=== PATIENT | male | born 1955 | race Caucasian/White ===

== ENCOUNTER 2017-03-30 08:04 | Day surgery (SDC) | payer BC ==
[~2017-03-30] VITALS: Ht 177.8 cm; Wt 90.9 kg
[~2017-03-30 08:04] MED LIST: METO25TA91 PO; RIVA20TA PO
[2017-03-30] MEDS ORDERED: SODIUM CHLORIDE 0.9% 500 ML IV PRN (08:45)
[2017-03-30 08:52] VITALS: BP 118/79
[2017-03-30] MEDS ORDERED: PLEASE ENTER HEIGHT AND WEIGHT MC SCH (09:00)
[2017-03-30] MEDS ORDERED: DRON400T PO (09:23)
[2017-03-30] MEDS ORDERED: DILT240C PO (09:23)
[2017-03-30] MEDS ORDERED: APIX5TAB PO (09:23)
[2017-03-30] MEDS ORDERED: METO25TA91 PO (09:23)
[2017-03-30 10:02] LABS: BLOOD UREA NITROGEN 24 mg/dL (7-18)
[2017-03-30] MEDS ORDERED: PROPOFOL 10 MG/ML, 20ML ONE (10:20)
== END 2017-03-30 11:35 | disposition home or self-care (01) ==
LOC: CACL 08:04
PROVIDERS: ATTEND Internal Medicine Cardiovascular Disease
DX: I48.0 Paroxysmal atrial fibrillation (principal); I34.0 Nonrheumatic mitral (valve) insufficiency; I42.9 Cardiomyopathy, unspecified; E11.9 Type 2 diabetes mellitus without complications; G47.30 Sleep apnea, unspecified; Z79.01 Long term (current) use of anticoagulants; Z88.1 Allergy status to other antibiotic agents; Z88.0 Allergy status to penicillin; Z88.8 Allergy status to other drugs, medicaments and biological substances; E78.5 Hyperlipidemia, unspecified
CPT/HCPCS: 36415; 80048; 92960; 93005; J2704

== ENCOUNTER 2017-06-17 17:13 | Emergency (ER) | payer BC ==
[~2017-06-17] VITALS: Ht 177.8 cm; Wt 94.8 kg
[~2017-06-17 17:13] MED LIST changes: +APIX5TAB PO; +DILT240C PO; +DRON400T PO
[2017-06-17 18:56] LABS: HEMATOCRIT 40.3 % (39.2-51.8); HEMOGLOBIN 13.6 g/dL (13.7-18.0); WHITE BLOOD COUNT 9.2 x10^3/uL (3.4-10)
[2017-06-17 19:00] LABS: BLOOD UREA NITROGEN 28 mg/dL (7-18)
[2017-06-17 20:17] VITALS: BP 120/68
== END 2017-06-17 20:20 | disposition home or self-care (01) ==
LOC: ED 20:00
DX: I48.0 Paroxysmal atrial fibrillation (principal); Z79.01 Long term (current) use of anticoagulants; Z88.0 Allergy status to penicillin
CPT/HCPCS: 36415; 80048; 85025; 93005; 99285

== ENCOUNTER → 2017-07-12 | Outpatient (CLI) | payer BC ==
[~2017-07-12] MED LIST changes: +OMNIPAQUE 350 MG/ML, 150 ML BOTTLE ONE
== END | disposition home or self-care (01) ==
LOC: CFH 13:36
PROVIDERS: ATTEND Internal Medicine Cardiovascular Disease
DX: Z01.818 Encounter for other preprocedural examination (principal); I48.0 Paroxysmal atrial fibrillation; M43.8X4 Other specified deforming dorsopathies, thoracic region
CPT/HCPCS: 71020; 75572; Q9967

== ENCOUNTER 2017-07-13 06:28 | Inpatient (IN) | payer BC ==
[2017-07-12 12:15] LABS: HEMATOCRIT 41.5 % (39.2-51.8); HEMOGLOBIN 14.2 g/dL (13.7-18.0); WHITE BLOOD COUNT 14.3 x10^3/uL (3.4-10)
[2017-07-12 12:26] LABS: BLOOD UREA NITROGEN 17 mg/dL (7-18)
[2017-07-12 12:29] LABS: ASPARTATE AMINO TRANSFERASE 11 U/L (15-37)
[~2017-07-13] VITALS: Ht 177.8 cm; Wt 96.3 kg
[~2017-07-13 06:28] MED LIST changes: -OMNIPAQUE 350 MG/ML, 150 ML BOTTLE ONE
[2017-07-13] MEDS ORDERED: SODIUM CHLORIDE 0.9% 1,000 ML IV SCH (06:54)
[2017-07-13] MEDS ORDERED: SODIUM CHLORIDE 0.9% 1,000 ML IV ONE (07:00)
[2017-07-13] MEDS ORDERED: FENTANYL PF 100 MCG/2ML ONE (07:59)
[2017-07-13] MEDS ORDERED: MIDAZOLAM 1 MG/ML, 5ML ONE (07:59)
[2017-07-13] MEDS ORDERED: LIDOCAINE 2%, 20ML ONE (08:19)
[2017-07-13] MEDS ORDERED: HEPARIN 1,000 UNITS/ML, 10ML ONE (09:08)
[2017-07-13] MEDS ORDERED: PROTAMINE SULFATE 10 MG/ML, 5ML ONE (09:08)
[2017-07-13] MEDS ORDERED: PROMETHAZINE 25 MG/ML, 1ML IV PRN (12:00)
[2017-07-13] MEDS ORDERED: LABETALOL 5MG/ML, 20ML IV PRN (12:00)
[2017-07-13] MEDS ORDERED: hydrALAzine 20 MG/ML, 1ML IV PRN (12:00)
[2017-07-13] MEDS ORDERED: MIDAZOLAM 1 MG/ML, 2ML IV PRN (12:00)
[2017-07-13] MEDS ORDERED: HYDROmorphone 1 MG/ML, 1ML IV PRN (12:00)
[2017-07-13] MEDS ORDERED: ALBUTEROL SULFATE 2.5 MG/3 ML NPPB PRN (12:00)
[2017-07-13] MEDS ORDERED: ONDANSETRON 2MG/ML, 2ML IVPush PRN (12:00)
[2017-07-13] MEDS ORDERED: ACETAMINOPHEN 325 MG TABLET PO PRN ×2 (12:00)
[2017-07-13] MEDS ORDERED: FENTANYL PF 100 MCG/2ML IV PRN (12:00)
[2017-07-13] MEDS ORDERED: OXYcodone 5 MG/5 ML ORAL.SOL UDC PO PRN (12:00)
[2017-07-13] MEDS ORDERED: MEPERIDINE/PF 25MG/0.5ML IVPush PRN (12:00)
[2017-07-13] MEDS ORDERED: ACETAMINOPHEN 650 MG/20.3 ML UDC ONE (13:05)
[2017-07-13] MEDS ORDERED: OXYcodone 5 MG/5 ML ORAL.SOL UDC ONE (13:05)
[2017-07-13] MEDS: APIXABAN 5 MG TABLET PO SCH ×2 (13:54→21:19)
[2017-07-13] MEDS ORDERED: DEXAMETHASONE 4 MG/ML, 1ML ONE (16:14)
[2017-07-13] MEDS ORDERED: PROPOFOL 10 MG/ML, 20ML ONE (16:14)
[2017-07-13] MEDS ORDERED: ONDANSETRON 2MG/ML, 2ML ONE (16:14)
[2017-07-13] MEDS ORDERED: ROCURONIUM 10 MG/ML ONE (16:14)
[2017-07-13] MEDS ORDERED: SUCCINYLCHOLINE 20 MG/ML, 10ML ONE (16:14)
[2017-07-13] MEDS ORDERED: PHENYLEPHRINE 10 MG/ML ONE (16:14)
[2017-07-13] MEDS ORDERED: VASOPRESSIN 20 UNIT/ML, 1ML ONE (16:14)
[2017-07-13] MEDS: SODIUM CHLORIDE 0.9% 1,000 ML IV SCH (18:09)
[2017-07-13 18:10] VITALS: BP 144/97
[2017-07-13] MEDS: SOTALOL 80MG TABLET PO SCH (18:10)
[2017-07-13 19:18] VITALS: BP 119/81
[2017-07-13] MEDS ORDERED: ZOLPIDEM 5MG TABLET PO PRN (21:00)
[2017-07-14 00:52] VITALS: BP 128/79
[2017-07-14] MEDS: SODIUM CHLORIDE 0.9% 1,000 ML IV SCH ×4 (01:49→19:46)
[2017-07-14] MEDS: SOTALOL 80MG TABLET PO SCH ×2 (05:34→18:13)
[2017-07-14] MEDS: APIXABAN 5 MG TABLET PO SCH ×2 (07:48→19:46)
[2017-07-14] MEDS: DILTIAZEM 240 MG CAP.ER.24H PO SCH (07:48)
[2017-07-14 08:47] VITALS: BP 117/78
[2017-07-14 14:06] VITALS: BP 92/60
[2017-07-14 19:44] VITALS: BP 112/71
[2017-07-14] MEDS: NITROFURANTOIN (MACROBID) 100 MG CAPSULE PO SCH (21:44)
[2017-07-15 04:25] VITALS: BP 117/76
[2017-07-15] MEDS: SODIUM CHLORIDE 0.9% 1,000 ML IV SCH ×3 (05:37→18:14)
[2017-07-15] MEDS: SOTALOL 80MG TABLET PO SCH ×2 (05:38→18:14)
[2017-07-15 08:25] VITALS: BP 128/82
[2017-07-15] MEDS: APIXABAN 5 MG TABLET PO SCH ×2 (08:54→20:32)
[2017-07-15] MEDS: DILTIAZEM 240 MG CAP.ER.24H PO SCH (08:54)
[2017-07-15] MEDS: NITROFURANTOIN (MACROBID) 100 MG CAPSULE PO SCH ×2 (08:55→20:32)
[2017-07-15 14:01] VITALS: BP 129/81
[2017-07-15 18:15] VITALS: BP 122/78
[2017-07-16] MEDS: SODIUM CHLORIDE 0.9% 1,000 ML IV SCH (01:00)
[2017-07-16 01:36] VITALS: BP 144/82
[2017-07-16 06:00] VITALS: BP 156/89
[2017-07-16] MEDS: SOTALOL 80MG TABLET PO SCH (06:02)
[2017-07-16 09:00] LABS: BLOOD UREA NITROGEN 10 mg/dL (7-18)
[2017-07-16] MEDS: NITROFURANTOIN (MACROBID) 100 MG CAPSULE PO SCH (09:05)
[2017-07-16] MEDS: APIXABAN 5 MG TABLET PO SCH (09:05)
[2017-07-16] MEDS: DILTIAZEM 240 MG CAP.ER.24H PO SCH (09:05)
[2017-07-16 09:17] LABS: HEMATOCRIT 30.7 % (39.2-51.8); HEMOGLOBIN 10.5 g/dL (13.7-18.0); WHITE BLOOD COUNT 12.7 x10^3/uL (3.4-10)
[2017-07-16] MEDS ORDERED: SOTA80TA18 PO (10:52)
[2017-07-16] MEDS ORDERED: NITR100C6 PO (11:03)
== END 2017-07-16 13:14 | disposition home or self-care (01) | DRG 274 ==
LOC: CACL 06:28 → ORIP 11:33 → 5SO 15:35
PROVIDERS: ADMIT Internal Medicine Cardiovascular Disease; ATTEND Internal Medicine Cardiovascular Disease
PROC: 02K83ZZ Map Conduction Mechanism, Percutaneous Approach (ICD-10-PCS; 2017-07-13)
PROC: 4A023FZ Measurement of Cardiac Rhythm, Percutaneous Approach (ICD-10-PCS; 2017-07-13)
PROC: 4A0234Z Measurement of Cardiac Electrical Activity, Percutaneous Approach (ICD-10-PCS; 2017-07-13)
PROC: 02583ZZ Destruction of Conduction Mechanism, Percutaneous Approach (ICD-10-PCS; principal; 2017-07-13 08:00)
DX: I48.0 Paroxysmal atrial fibrillation (principal); D68.69 Other thrombophilia; I42.9 Cardiomyopathy, unspecified; S37.90XA Unspecified injury of unspecified urinary and pelvic organ, initial encounter; T83.83XA Hemorrhage due to genitourinary prosthetic devices, implants and grafts, initial encounter; N39.0 Urinary tract infection, site not specified; Y65.8 Other specified misadventures during surgical and medical care; N40.0 Benign prostatic hyperplasia without lower urinary tract symptoms; D64.9 Anemia, unspecified; E78.5 Hyperlipidemia, unspecified; I34.1 Nonrheumatic mitral (valve) prolapse; R31.0 Gross hematuria; Z87.891 Personal history of nicotine dependence
CPT/HCPCS: 36415; 80048; 80053; 81001; 85025; 85347; 85610; 87086; 87324; 93005; 93306; 93312; 93321; 93325; 93613; 93656; 93662; C1732; C1766; C1893; C1894; J1100; J1644; J2250; J2405; J2704; J2720; J3010; J3490; C1730; C1759; J0330; J2370; J7030

== ENCOUNTER 2017-11-15 11:36 | Inpatient (IN) | payer BC ==
[~2017-11-15] VITALS: Ht 177.8 cm; Wt 94.4 kg
[~2017-11-15 11:36] MED LIST changes: +NITR100C6 PO; +SOTA120T26 PO; +SOTA80TA18 PO
[2017-11-15] MEDS ORDERED: ASPI325T17 PO (11:54)
[2017-11-15] MEDS ORDERED: FINA1TAB16 PO (11:56)
[2017-11-15] MEDS ORDERED: RIVA20TA PO (11:56)
[2017-11-15] MEDS ORDERED: SODIUM CHLORIDE FLUSH 10ML SYR IVF ONE (12:00)
[2017-11-15] MEDS ORDERED: SODIUM CHLORIDE 0.9% 1,000ML IVBOLUS ONE (12:00)
[2017-11-15] MEDS ORDERED: ASPIRIN 81 MG TABLET CHEW ONE (12:06)
[2017-11-15 12:14] LABS: BASOPHILS # (AUTO) 0.05 x10^3/uL (0-0.1); BASOPHILS % (AUTO) 1 % (0-1); EOSINOPHILS # (AUTO) 0.12 x10^3/uL (0-0.4); EOSINOPHILS % (AUTO) 1 % (1-7); LYMPHOCYTES # (AUTO) 2.05 x10^3/uL (1-3.4); LYMPHOCYTES % (AUTO) 22 % (22-44); MD NO; MEAN CORPUSCULAR HEMOGLOBIN 30.2 pg (27.5-34.5); MEAN CORPUSCULAR HGB CONC 33.8 g/dL (33.2-36.2); MEAN CORPUSCULAR VOLUME 89.2 fL (81-97); MEAN PLATELET VOLUME 8.9 fL (7.4-10.4); MONOCYTES # (AUTO) 0.58 x10^3/uL (0.2-0.8); MONOCYTES % (AUTO) 6 % (2-9); NEUTROPHILS # (AUTO) 6.47 x10^3/uL (1.8-6.8); NEUTROPHILS % (AUTO) 70 % (42-75); PLATELET COUNT 310 x10^3/uL (130-400); RED BLOOD COUNT 4.45 x10^6/uL (4.38-5.82)
[2017-11-15] MEDS ORDERED: ASPIRIN 81 MG TABLET CHEW PO ONE (12:15)
[2017-11-15 12:26] LABS: ALBUMIN 3.7 g/dL (3.4-5.0); ANION GAP 7 mmol/L (5-15); CALCIUM 8.9 mg/dL (8.5-10.1); CHLORIDE 110 mmol/L (98-107); CREATININE 0.82 mg/dL (0.7-1.3)
[2017-11-15 12:31] LABS: FREE T4 (FREE THYROXINE) 1.05 ng/dL (0.76-1.46); TROPONIN I < 0.015 ng/mL (0.000-0.045)
[2017-11-15 12:37] LABS: THYROID STIMULATING HORMONE 0.729 mIU/L (0.358-3.740)
[2017-11-15] MEDS ORDERED: SODIUM CHLORIDE FLUSH 10ML SYR IVF PRN (13:30)
[2017-11-15] MEDS ORDERED: SODIUM CHLORIDE 0.9% 1,000 ML IV SCH (13:42)
[2017-11-15] MEDS ORDERED: ONDANSETRON 2MG/ML, 2ML IVPush PRN (14:00)
[2017-11-15] MEDS ORDERED: DOCUSATE 100 MG CAPSULE PO PRN (14:00)
[2017-11-15] MEDS ORDERED: morphine SULFATE 10 MG/ML, 1ML IVPush PRN (14:00)
[2017-11-15] MEDS ORDERED: ACETAMINOPHEN 325 MG TABLET PO PRN (14:00)
[2017-11-15] MEDS ORDERED: POLYETHYLENE GLYCOL 17 GM PACKET PO PRN (14:00)
[2017-11-15] MEDS ORDERED: HYDROcodone/APAP 5/325 TABLET PO PRN (14:00)
[2017-11-15] MEDS ORDERED: DIGOXIN 0.25 MG/ML, 2ML IVPush ONE (14:30)
[2017-11-15 16:43] VITALS: BP 102/68
[2017-11-15] MEDS ORDERED: RIVAROXABAN 20 MG TABLET PO SCH (17:00)
[2017-11-15] MEDS: SOTALOL 120MG TABLET PO SCH (18:19)
[2017-11-15 18:41] LABS: TROPONIN I < 0.015 ng/mL (0.000-0.045)
[2017-11-15 20:15] VITALS: BP 112/76
[2017-11-16 02:50] VITALS: BP 112/74
[2017-11-16] MEDS: SOTALOL 120MG TABLET PO SCH (05:42)
[2017-11-16 06:33] LABS: TROPONIN I < 0.015 ng/mL (0.000-0.045)
[2017-11-16] MEDS ORDERED: PROPOFOL 10 MG/ML, 20ML ONE (08:03)
[2017-11-16] MEDS ORDERED: ASPIRIN 325 MG TABLET PO SCH (09:00)
[2017-11-16] MEDS ORDERED: RIVAROXABAN 20 MG TABLET PO SCH (09:00)
[2017-11-16] MEDS ORDERED: SENNA/DOCUSATE TABLET PO SCH (09:00)
[2017-11-16] MEDS ORDERED: TEMPLATE NON-FORMULARY MED. (Finasteride** 1 MG) PO SCH (09:00)
[2017-11-16 09:30] VITALS: BP 101/68
== END 2017-11-16 14:14 | disposition home or self-care (01) | DRG 309 ==
LOC: ED 13:08 → EDIP 13:09 → ED 13:23 → SUATTDRO 13:28 → 5SO 15:30 → DCLOUNGE 11-16 14:02
PROVIDERS: ADMIT Hospitalist; ATTEND Hospitalist
PROC: 5A2204Z Restoration of Cardiac Rhythm, Single (ICD-10-PCS; principal; 2017-11-15)
DX: I48.0 Paroxysmal atrial fibrillation (principal); D68.69 Other thrombophilia; I11.9 Hypertensive heart disease without heart failure; G90.9 Disorder of the autonomic nervous system, unspecified; M19.90 Unspecified osteoarthritis, unspecified site; N40.0 Benign prostatic hyperplasia without lower urinary tract symptoms; Z79.01 Long term (current) use of anticoagulants; Z82.49 Family history of ischemic heart disease and other diseases of the circulatory system; Z87.891 Personal history of nicotine dependence
CPT/HCPCS: 36415; 71045; 80048; 82040; 83735; 83880; 84439; 84443; 84484; 85025; 92960; 93005; 96360; J2704; J1160; J7030

== ENCOUNTER → 2018-04-20 | Outpatient (CLI) | payer BC ==
[~2018-04-20] MED LIST changes: +ASPI325T17 PO; +FINA1TAB16 PO
== END | disposition home or self-care (01) ==
LOC: CFH 08:27
PROVIDERS: ATTEND Internal Medicine Cardiovascular Disease
DX: I08.0 Rheumatic disorders of both mitral and aortic valves (principal); I42.9 Cardiomyopathy, unspecified; N40.0 Benign prostatic hyperplasia without lower urinary tract symptoms; I48.0 Paroxysmal atrial fibrillation; I10 Essential (primary) hypertension; E11.9 Type 2 diabetes mellitus without complications; E78.5 Hyperlipidemia, unspecified; Z79.01 Long term (current) use of anticoagulants
CPT/HCPCS: 93306

== ENCOUNTER 2018-07-14 08:14 | Emergency (ER) | payer MEDICARE, BC ==
[~2018-07-14] VITALS: Ht 177.8 cm; Wt 94.3 kg
[2018-07-14] MEDS ORDERED: ASPIRIN 81 MG TABLET EC ONE (08:50)
[2018-07-14] MEDS ORDERED: ASPIRIN 81 MG TABLET CHEW PO ONE (09:00)
[2018-07-14 09:20] LABS: BASOPHILS # (AUTO) 0.05 x10^3/uL (0-0.1); BASOPHILS % (AUTO) 0 % (0-1); EOSINOPHILS # (AUTO) 0.24 x10^3/uL (0-0.4); EOSINOPHILS % (AUTO) 2 % (1-7); LYMPHOCYTES # (AUTO) 2.51 x10^3/uL (1-3.4); LYMPHOCYTES % (AUTO) 24 % (22-44); MD NO; MEAN CORPUSCULAR HEMOGLOBIN 31.1 pg (27.5-34.5); MEAN CORPUSCULAR HGB CONC 34.2 g/dL (33.2-36.2); MEAN CORPUSCULAR VOLUME 91.1 fL (81-97); MONOCYTES # (AUTO) 0.76 x10^3/uL (0.2-0.8); MONOCYTES % (AUTO) 7 % (2-9); NEUTROPHILS # (AUTO) 6.94 x10^3/uL (1.8-6.8); NEUTROPHILS % (AUTO) 66 % (42-75); PLATELET COUNT 287 x10^3/uL (130-400); RED BLOOD COUNT 4.64 x10^6/uL (4.38-5.82); RED CELL DISTRIBUTION WIDTH 13.5 % (9.4-14.8)
[2018-07-14 09:33] LABS: ALBUMIN 4.1 g/dL (3.4-5.0); ANION GAP 6 mmol/L (5-15); CALCIUM 9.2 mg/dL (8.5-10.1); CHLORIDE 110 mmol/L (98-107); CREATININE 0.87 mg/dL (0.7-1.3)
[2018-07-14 09:37] LABS: TROPONIN I < 0.015 ng/mL (0.000-0.045)
[2018-07-14 09:42] LABS: T4 (THYROXINE) 7.9 mcg/dL (4.5-12.1)
[2018-07-14 10:06] VITALS: BP 104/73
[2018-07-14] MEDS ORDERED: RIVAROXABAN 20 MG TABLET ONE (10:18)
[2018-07-14] MEDS ORDERED: RIVAROXABAN 20 MG TABLET PO ONE (10:30)
== END 2018-07-14 11:06 | disposition home or self-care (01) ==
LOC: ED 10:11
DX: I48.2 Chronic atrial fibrillation (principal)
CPT/HCPCS: 36415; 71046; 80048; 82040; 83880; 84436; 84443; 84484; 85025; 93005; 99285

== ENCOUNTER 2018-07-19 10:55 | Day surgery (SDC) | payer MEDICARE, BC ==
[2018-07-19] MEDS ORDERED: SODIUM CHLORIDE 0.9% 1,000 ML IV SCH (11:30)
[2018-07-19] MEDS ORDERED: RIVA20TA PO (11:35)
[2018-07-19] MEDS ORDERED: PLEASE ENTER HEIGHT AND WEIGHT MC SCH (12:00)
[2018-07-19] MEDS ORDERED: SODIUM CHLORIDE FLUSH 10ML SYR IVF SCH (21:00)
== END 2018-07-19 13:31 | disposition home or self-care (01) ==
LOC: CACL 10:55
PROVIDERS: ATTEND Internal Medicine Cardiovascular Disease
DX: I48.91 Unspecified atrial fibrillation (principal); I34.0 Nonrheumatic mitral (valve) insufficiency; Z88.1 Allergy status to other antibiotic agents; Z88.0 Allergy status to penicillin; Z88.8 Allergy status to other drugs, medicaments and biological substances
CPT/HCPCS: 92960; 93005; 93312; 93321; 93325

== ENCOUNTER 2018-11-02 08:52 | Day surgery (SDC) | payer MEDICARE, BC ==
[~2018-11-02] VITALS: Ht 177.8 cm; Wt 95.5 kg
[2018-11-02] MEDS ORDERED: SODIUM CHLORIDE 0.9% 1,000 ML IV ONE (10:00)
[2018-11-02] MEDS ORDERED: UBID100C41 PO (10:17)
[2018-11-02] MEDS ORDERED: PLEASE ENTER HEIGHT AND WEIGHT MC SCH (10:30)
[2018-11-02 11:08] LABS: ANION GAP 5 mmol/L (5-15); CALCIUM 8.9 mg/dL (8.5-10.1); CHLORIDE 111 mmol/L (98-107); CREATININE 0.86 mg/dL (0.7-1.3)
[2018-11-02] MEDS ORDERED: PROPOFOL 10 MG/ML, 20ML ONE (12:46)
== END 2018-11-02 14:27 | disposition home or self-care (01) ==
LOC: CACL 08:52
PROVIDERS: ATTEND Internal Medicine Cardiovascular Disease
DX: I48.91 Unspecified atrial fibrillation (principal); I34.0 Nonrheumatic mitral (valve) insufficiency; E78.5 Hyperlipidemia, unspecified; E11.9 Type 2 diabetes mellitus without complications; Z88.1 Allergy status to other antibiotic agents; Z88.0 Allergy status to penicillin; Z88.8 Allergy status to other drugs, medicaments and biological substances; Z79.82 Long term (current) use of aspirin; Z79.84 Long term (current) use of oral hypoglycemic drugs
CPT/HCPCS: 36415; 80048; 92960; 93312; 93321; 93325; J2704

== ENCOUNTER → 2018-12-03 | Outpatient (CLI) | payer MEDICARE, BC ==
[~2018-12-03] MED LIST changes: +UBID100C41 PO
== END | disposition home or self-care (01) ==
LOC: CFH 10:50
PROVIDERS: ATTEND Internal Medicine Cardiovascular Disease
DX: E78.00 Pure hypercholesterolemia, unspecified (principal); I48.0 Paroxysmal atrial fibrillation; I48.91 Unspecified atrial fibrillation; Z79.01 Long term (current) use of anticoagulants
CPT/HCPCS: 71046

== ENCOUNTER 2019-01-18 13:19 | Outpatient (CLI) | payer MEDICARE, BC ==
[~2019-01-18 13:19] MED LIST changes: -MV-M1TAB16 PO; -OMNIPAQUE 350 MG/ML, 150 ML BOTTLE ONE; -VITA400C43 PO
[2019-01-18] MEDS ORDERED: MV-M1TAB16 PO (13:57)
[2019-01-18] MEDS ORDERED: VITA400C43 PO (13:57)
== END 2019-01-18 23:59 | disposition home or self-care (01) ==
LOC: STAR 13:19
PROVIDERS: ATTEND Internal Medicine Cardiovascular Disease
DX: Z02.9 Encounter for administrative examinations, unspecified (principal)

== ENCOUNTER → 2019-01-18 | Outpatient (CLI) | payer MEDICARE, BC ==
[~2019-01-18] MED LIST changes: +MV-M1TAB16 PO; +OMNIPAQUE 350 MG/ML, 150 ML BOTTLE ONE; +VITA400C43 PO
== END | disposition home or self-care (01) ==
LOC: CFH 11:43
PROVIDERS: ATTEND Internal Medicine Cardiovascular Disease
DX: I25.10 Atherosclerotic heart disease of native coronary artery without angina pectoris (principal); I48.0 Paroxysmal atrial fibrillation
CPT/HCPCS: 71046; 75572; Q9967

== ENCOUNTER 2019-01-23 06:27 | Inpatient (IN) | payer MEDICARE, BC ==
[2019-01-18 13:47] VITALS: BP 145/89
[~2019-01-23] VITALS: Ht 177.8 cm; Wt 90.4 kg
[~2019-01-23 06:27] MED LIST changes: +MV-M1TAB16 PO; +VITA400C43 PO
[2019-01-23] MEDS ORDERED: SODIUM CHLORIDE 0.9% 1,000 ML IV SCH (06:44)
[2019-01-23] MEDS ORDERED: MIDAZOLAM 1 MG/ML, 2ML ONE (07:49)
[2019-01-23] MEDS ORDERED: FENTANYL PF 250 MCG/5ML ONE (07:49)
[2019-01-23] MEDS ORDERED: SUCCINYLCHOLINE 20 MG/ML, 10ML ONE (07:51)
[2019-01-23] MEDS ORDERED: ROCURONIUM 10MG/ML,5ML ONE (07:51)
[2019-01-23] MEDS ORDERED: PROPOFOL 10 MG/ML, 20ML ONE (07:51)
[2019-01-23] MEDS ORDERED: PROTAMINE SULFATE 10 MG/ML, 5ML ONE (07:51)
[2019-01-23] MEDS ORDERED: ONDANSETRON 2MG/ML, 2ML ONE (08:38)
[2019-01-23] MEDS ORDERED: DEXAMETHASONE 4 MG/ML, 1ML ONE (08:38)
[2019-01-23] MEDS ORDERED: PROMETHAZINE 12.5 MG SUPP PR PRN (12:00)
[2019-01-23] MEDS ORDERED: ONDANSETRON 2MG/ML, 2ML IV PRN (12:00)
[2019-01-23] MEDS ORDERED: MEPERIDINE/PF 25MG/0.5ML IVPush PRN (12:00)
[2019-01-23] MEDS ORDERED: PROMETHAZINE 25 MG/ML, 1ML IV PRN (12:00)
[2019-01-23] MEDS ORDERED: ALBUTEROL SULFATE 2.5 MG/3 ML NPPB PRN (12:00)
[2019-01-23] MEDS ORDERED: ACETAMINOPHEN 325 MG TABLET PO PRN (12:00)
[2019-01-23] MEDS ORDERED: MORPHINE SULFATE 4 MG/ML, 1ML IVPush PRN (12:00)
[2019-01-23] MEDS ORDERED: LABETALOL 5MG/ML, 20ML IV PRN (12:00)
[2019-01-23] MEDS ORDERED: DIAZEPAM 5 MG/ML, 2ML IVPush PRN (12:00)
[2019-01-23] MEDS ORDERED: MIDAZOLAM 1 MG/ML, 2ML IV PRN (12:00)
[2019-01-23] MEDS ORDERED: ONDANSETRON ODT 8 MG PO PRN (12:00)
[2019-01-23] MEDS ORDERED: EPHEDRINE 50 MG/ML, 1ML IVPush PRN (12:00)
[2019-01-23] MEDS ORDERED: HALOPERIDOL 5 MG/ML IV PRN (12:00)
[2019-01-23] MEDS ORDERED: HYDROmorphone 2 MG/ML, 1ML IVPush PRN (12:00)
[2019-01-23] MEDS ORDERED: hydrALAzine 20 MG/ML, 1ML IV PRN (12:00)
[2019-01-23] MEDS ORDERED: OXYcodone 5 MG/5 ML ORAL.SOL UDC PO PRN (12:00)
[2019-01-23] MEDS ORDERED: FENTANYL PF 100 MCG/2ML IV PRN (12:00)
[2019-01-23] MEDS ORDERED: ZOLPIDEM 5MG TABLET PO PRN (12:30)
[2019-01-23] MEDS ORDERED: TEMPLATE NON-FORMULARY MED. (Finasteride** 1 MG) PO PRN (12:30)
[2019-01-23] MEDS ORDERED: FENTANYL PF 100 MCG/2ML ONE (12:43)
[2019-01-23] MEDS ORDERED: OXYcodone 5 MG/5 ML ORAL.SOL UDC ONE (12:43)
[2019-01-23 13:07] VITALS: BP 115/79
[2019-01-23] MEDS: RIVAROXABAN 20 MG TABLET PO SCH (15:41)
[2019-01-23 19:08] VITALS: BP 131/80
[2019-01-23] MEDS: SOTALOL 120MG TABLET PO SCH (20:11)
[2019-01-24 01:19] VITALS: BP 117/77
[2019-01-24 07:31] VITALS: BP 119/74
[2019-01-24] MEDS: MULTIVIT.W/IRON, MINERALS ORAL SOL PO SCH (09:00)
[2019-01-24] MEDS ORDERED: TEMPLATE NON-FORMULARY MED. (Ubidecarenone** (Co Q-10**) 100 MG) PO SCH (09:00)
[2019-01-24] MEDS: VITAMIN E 400 UNITS CAPSULE PO SCH (09:00)
[2019-01-24] MEDS: SOTALOL 120MG TABLET PO SCH ×2 (09:33→20:10)
[2019-01-24 14:18] VITALS: BP 98/65
[2019-01-24] MEDS: RIVAROXABAN 20 MG TABLET PO SCH (20:10)
[2019-01-24 20:26] VITALS: BP 109/70
[2019-01-24] MEDS: ACETAMINOPHEN 325 MG TABLET PO PRN (21:10)
[2019-01-25 01:23] VITALS: BP 116/85
[2019-01-25 08:54] VITALS: BP 111/76
[2019-01-25] MEDS: VITAMIN E 400 UNITS CAPSULE PO SCH (08:57)
[2019-01-25] MEDS: SOTALOL 120MG TABLET PO SCH ×2 (08:57→19:54)
[2019-01-25] MEDS: MULTIVIT.W/IRON, MINERALS ORAL SOL PO SCH (09:00)
[2019-01-25 11:04] LABS: BASOPHILS # (AUTO) 0.06 x10^3/uL (0-0.1); BASOPHILS % (AUTO) 1 % (0-1); EOSINOPHILS # (AUTO) 0.12 x10^3/uL (0-0.4); EOSINOPHILS % (AUTO) 1 % (1-7); LYMPHOCYTES # (AUTO) 1.83 x10^3/uL (1-3.4); LYMPHOCYTES % (AUTO) 13 % (22-44); MD NO; MEAN CORPUSCULAR HEMOGLOBIN 31.7 pg (27.5-34.5); MEAN CORPUSCULAR HGB CONC 34.9 g/dL (33.2-36.2); MEAN CORPUSCULAR VOLUME 90.9 fL (81-97); MEAN PLATELET VOLUME 9.1 fL (7.4-10.4); MONOCYTES # (AUTO) 1.32 x10^3/uL (0.2-0.8); MONOCYTES % (AUTO) 10 % (2-9); NEUTROPHILS # (AUTO) 10.27 x10^3/uL (1.8-6.8); NEUTROPHILS % (AUTO) 76 % (42-75); PLATELET COUNT 225 x10^3/uL (130-400); RED BLOOD COUNT 3.74 x10^6/uL (4.38-5.82)
[2019-01-25 11:18] LABS: ANION GAP 6 mmol/L (5-15); CHLORIDE 105 mmol/L (98-107); CREATININE 0.98 mg/dL (0.7-1.3)
[2019-01-25] MEDS: CEFAZOLIN 2,000 MG in SODIUM CHLORIDE 0.9% 50 ML IV SCH ×2 (14:40→22:19)
[2019-01-25 15:14] VITALS: BP 101/68
[2019-01-25 19:45] VITALS: BP 123/74
[2019-01-25] MEDS: RIVAROXABAN 20 MG TABLET PO SCH (19:54)
[2019-01-25] MEDS: ACETAMINOPHEN 325 MG TABLET PO PRN (19:59)
[2019-01-26 00:11] VITALS: BP 105/67
[2019-01-26 05:08] LABS: BASOPHILS % (AUTO) 2 % (0-1); EOSINOPHILS # (AUTO) 0.11 x10^3/uL (0-0.4); EOSINOPHILS % (AUTO) 1 % (1-7); LYMPHOCYTES % (AUTO) 22 % (22-44); MD NO; MEAN CORPUSCULAR HEMOGLOBIN 31.3 pg (27.5-34.5); MEAN CORPUSCULAR HGB CONC 34.3 g/dL (33.2-36.2); MEAN CORPUSCULAR VOLUME 91.2 fL (81-97); MEAN PLATELET VOLUME 9.8 fL (7.4-10.4); MONOCYTES # (AUTO) 1.22 x10^3/uL (0.2-0.8); MONOCYTES % (AUTO) 11 % (2-9); NEUTROPHILS # (AUTO) 7.52 x10^3/uL (1.8-6.8); NEUTROPHILS % (AUTO) 65 % (42-75); PLATELET COUNT 186 x10^3/uL (130-400); RED BLOOD COUNT 3.46 x10^6/uL (4.38-5.82); RED CELL DISTRIBUTION WIDTH 13.4 % (9.4-14.8)
[2019-01-26 05:11] LABS: CHLORIDE 111 mmol/L (98-107)
[2019-01-26 05:17] LABS: ANION GAP 5 mmol/L (5-15); CALCIUM 8.5 mg/dL (8.5-10.1)
[2019-01-26] MEDS: CEFAZOLIN 2,000 MG in SODIUM CHLORIDE 0.9% 50 ML IV SCH ×3 (06:02→22:02)
[2019-01-26 07:32] VITALS: BP 113/76
[2019-01-26] MEDS ORDERED: DOCUSATE 100 MG CAPSULE PO PRN (08:30)
[2019-01-26] MEDS: VITAMIN E 400 UNITS CAPSULE PO SCH (09:25)
[2019-01-26] MEDS: SOTALOL 120MG TABLET PO SCH ×2 (09:25→20:24)
[2019-01-26] MEDS: MULTIVITAMINS/MINERALS TABLET PO SCH (12:34)
[2019-01-26 14:09] VITALS: BP 109/72
[2019-01-26 20:02] VITALS: BP 100/65
[2019-01-26] MEDS ORDERED: RIVAROXABAN 20 MG TABLET PO SCH (21:00)
[2019-01-27 03:00] VITALS: BP 104/69
[2019-01-27] MEDS: CEFAZOLIN 2,000 MG in SODIUM CHLORIDE 0.9% 50 ML IV SCH (06:04)
[2019-01-27 06:17] LABS: BASOPHILS # (AUTO) 0.04 x10^3/uL (0-0.1); BASOPHILS % (AUTO) 0 % (0-1); EOSINOPHILS # (AUTO) 0.12 x10^3/uL (0-0.4); EOSINOPHILS % (AUTO) 1 % (1-7); LYMPHOCYTES # (AUTO) 2.27 x10^3/uL (1-3.4); LYMPHOCYTES % (AUTO) 22 % (22-44); MD NO; MEAN CORPUSCULAR HEMOGLOBIN 30.4 pg (27.5-34.5); MEAN CORPUSCULAR HGB CONC 33.7 g/dL (33.2-36.2); MEAN PLATELET VOLUME 9.4 fL (7.4-10.4); MONOCYTES % (AUTO) 8 % (2-9); NEUTROPHILS # (AUTO) 6.94 x10^3/uL (1.8-6.8); NEUTROPHILS % (AUTO) 68 % (42-75); PLATELET COUNT 209 x10^3/uL (130-400); RED BLOOD COUNT 3.58 x10^6/uL (4.38-5.82); RED CELL DISTRIBUTION WIDTH 13.9 % (9.4-14.8)
[2019-01-27] MEDS ORDERED: CEPHALEXIN 500 MG CAPSULE PO SCH (07:30)
[2019-01-27 08:00] VITALS: BP 118/75
[2019-01-27] MEDS ORDERED: MULTIVITAMINS/MINERALS TABLET PO SCH (09:00)
[2019-01-27 09:05] VITALS: BP 111/73
[2019-01-27] MEDS: MULTIVITAMINS/MINERALS TABLET PO SCH (09:09)
[2019-01-27] MEDS: VITAMIN E 400 UNITS CAPSULE PO SCH (09:09)
[2019-01-27] MEDS: SOTALOL 120MG TABLET PO SCH (09:10)
[2019-01-27] MEDS ORDERED: CEPH-368 PO (10:16)
[2019-01-27 11:20] VITALS: BP 72/35
[2019-01-27 11:25] VITALS: BP 87/60
[2019-01-27 11:45] VITALS: BP 104/64
== END 2019-01-27 13:54 | disposition home or self-care (01) | DRG 273 ==
LOC: CACL 06:27 → ORIP 12:25 → OBSVTOIN 12:25 → INTOOBSV 12:25 → 5SO 12:52
PROVIDERS: ADMIT Internal Medicine Cardiovascular Disease; ATTEND Internal Medicine Cardiovascular Disease
PROC: 02583ZZ Destruction of Conduction Mechanism, Percutaneous Approach (ICD-10-PCS; 2019-01-23)
PROC: 02K83ZZ Map Conduction Mechanism, Percutaneous Approach (ICD-10-PCS; 2019-01-23)
PROC: 4A023FZ Measurement of Cardiac Rhythm, Percutaneous Approach (ICD-10-PCS; 2019-01-23)
PROC: 4A0234Z Measurement of Cardiac Electrical Activity, Percutaneous Approach (ICD-10-PCS; 2019-01-23)
PROC: 03HY32Z Insertion of Monitoring Device into Upper Artery, Percutaneous Approach (ICD-10-PCS; 2019-01-23)
PROC: 02573ZK Destruction of Left Atrial Appendage, Percutaneous Approach (ICD-10-PCS; principal; 2019-01-23 08:00)
DX: I48.0 Paroxysmal atrial fibrillation (principal); I50.33 Acute on chronic diastolic (congestive) heart failure; I31.3 Pericardial effusion (noninflammatory); D68.69 Other thrombophilia; D64.9 Anemia, unspecified; J06.9 Acute upper respiratory infection, unspecified; K59.00 Constipation, unspecified; N40.0 Benign prostatic hyperplasia without lower urinary tract symptoms; Z79.01 Long term (current) use of anticoagulants; Z87.891 Personal history of nicotine dependence; Z88.2 Allergy status to sulfonamides; Z88.0 Allergy status to penicillin; Z88.1 Allergy status to other antibiotic agents
CPT/HCPCS: 36415; 71046; 80048; 85025; 85347; 93308; 93312; 93321; 93325; 93613; 93656; 93662; C1732; C1766; C1893; C1894; G0378; J0690; J1100; J2250; J2405; J2704; J2720; J3010; C1730; C1759; J0330

== ENCOUNTER → 2020-12-29 | Outpatient (CLI) | payer MEDICARE, BC ==
[~2020-12-29] MED LIST changes: +CEPH-368 PO; -DILT240C PO; +DILT240C81 PO; +SOTA80TA PO; +TAMS-11 PO
[2020-12-29 14:40] LABS: MICROSCOPIC NOT IND
== END | disposition home or self-care (01) ==
LOC: STAR 09:30
PROVIDERS: ATTEND Urology
DX: Z01.812 Encounter for preprocedural laboratory examination (principal); Z20.822 Contact with and (suspected) exposure to COVID-19; N40.1 Benign prostatic hyperplasia with lower urinary tract symptoms
CPT/HCPCS: 81003; 87086; 93005; U0003